=== PATIENT | female | born 1935 | race Asian ===

== ENCOUNTER 2021-04-25 16:55 | Emergency (ER) | payer SELFPAY ==
[~2021-04-25] VITALS: Ht 154.9 cm; Wt 110.0 kg
[2021-04-25 19:30] LABS: BASOPHILS % (AUTO) 0.3 % (0.0-2.0); EOSINOPHILS % (AUTO) 0.3 % (1.0-6.0); HEMOGLOBIN 12.8 g/dL (12.0-16.0); LYMPHOCYTES # (AUTO) 0.8 K/uL (1.0-4.8); LYMPHOCYTES % (AUTO) 11.7 % (22.0-44.0); MEAN CORPUSCULAR HEMOGLOBIN 28.9 pg (26.0-34.0); MEAN CORPUSCULAR HGB CONC 32.8 G/dL (31.0-37.0); MEAN CORPUSCULAR VOLUME 88 fL (80-100); MONOCYTES # (AUTO) 0.5 K/uL (0.1-1.0); MONOCYTES % (AUTO) 7.2 % (2.0-9.0); NEUTROPHILS # (AUTO) 5.7 K/uL (1.8-7.7); NEUTROPHILS % (AUTO) 80.5 % (40.0-70.0); PLATELET COUNT (AUTO) 233 K/uL (150-450); RED BLOOD CELL COUNT(AUTO) 4.43 MIL/uL (4.00-5.20)
[2021-04-25 19:48] LABS: ANION GAP 10 mmol/L (8-16); CALCIUM, TOTAL 8.2 mg/dL (8.8-10.5); CARBON DIOXIDE 27 mmol/L (22-29); CHLORIDE 108 mmol/L (98-107); CREATININE 0.73 mg/dL (0.60-1.30); GLUCOSE,RANDOM 128 mg/dL (70-110); POTASSIUM 3.3 mmol/L (3.5-5.1); SODIUM SERUM 145 mmol/L (136-145); UREA NITROGEN, BLOOD 25 mg/dL (7-18)
[2021-04-25 19:50] LABS: GLOMERULAR FILTR. RATE CALC > 60 mL/min (>60)
[2021-04-25 19:54] LABS: ALANINE AMINOTRANSFERASE 13 U/L (12-78); ALBUMIN 3.1 g/dL (3.4-5.0); ALKALINE PHOSPHATASE 86 U/L (46-116); ASPARTATE AMINOTRANSFERASE 17 U/L (15-37); BILIRUBIN,TOTAL 0.5 mg/dL (0.1-1.0)
[2021-04-25 20:06] LABS: TOTAL PROTEIN, SERUM 7.3 g/dL (6.4-8.2)
[2021-04-25 21:00] VITALS: BP 142/69
== END 2021-04-25 22:30 | disposition home or self-care (01) ==
LOC: EMS 17:00
DX: Z04.3 Encounter for examination and observation following other accident (principal); F03.90 Unspecified dementia, unspecified severity, without behavioral disturbance, psychotic disturbance, mood disturbance, and anxiety; W18.39XA Other fall on same level, initial encounter; Y93.89 Activity, other specified; Y92.89 Other specified places as the place of occurrence of the external cause; Y99.8 Other external cause status
CPT/HCPCS: 70450; 80053; 81002; 85025; 99284

== ENCOUNTER 2021-05-25 11:46 | Inpatient (IN) | payer MEDICARE ==
[~2021-05-25] VITALS: Ht 160 cm; Wt 43.2 kg
[2021-05-25 12:50] LABS: BASOPHILS % (AUTO) 0.3 % (0.0-2.0); EOSINOPHILS % (AUTO) 0 % (1.0-6.0); HEMATOCRIT 47.7 % (36-46); HEMOGLOBIN 15.5 g/dL (12.0-16.0); LYMPHOCYTES # (AUTO) 0.5 K/uL (1.0-4.8); LYMPHOCYTES % (AUTO) 4.6 % (22.0-44.0); MEAN CORPUSCULAR HEMOGLOBIN 28.8 pg (26.0-34.0); MEAN CORPUSCULAR HGB CONC 32.5 G/dL (31.0-37.0); MEAN CORPUSCULAR VOLUME 88 fL (80-100); MONOCYTES # (AUTO) 0.5 K/uL (0.1-1.0); MONOCYTES % (AUTO) 4.9 % (2.0-9.0); NEUTROPHILS # (AUTO) 9.1 K/uL (1.8-7.7); RED CELL DISTRIBUTION WIDTH 15.7 % (11.5-14.5)
[2021-05-25 12:57] LABS: NEUTROPHILS % (AUTO) 90.2 % (40.0-70.0)
[2021-05-25] MEDS: CefTRIAXone 1 GM/DEXTROSE 50 ML IV SCH (13:00)
[2021-05-25 13:01] LABS: ANION GAP 18 mmol/L (8-16); CALCIUM, TOTAL 9.3 mg/dL (8.8-10.5); CARBON DIOXIDE 25 mmol/L (22-29); CHLORIDE 112 mmol/L (98-107); CREATININE 1.44 mg/dL (0.60-1.30); GLOMERULAR FILTR. RATE CALC 34 mL/min (>60); GLUCOSE,RANDOM 169 mg/dL (70-110); POTASSIUM 3.6 mmol/L (3.5-5.1); SODIUM SERUM 155 mmol/L (136-145); UREA NITROGEN, BLOOD 99 mg/dL (7-18)
[2021-05-25 13:05] LABS: INR 1.1 (0.9-1.1); PROTHROMBIN TIME 11.5 SEC (9.4-11.6)
[2021-05-25 13:06] LABS: COVID AG,FIA SOURCE NASOPHARYNGEAL
[2021-05-25 13:07] LABS: ALANINE AMINOTRANSFERASE 15 U/L (12-78); ALBUMIN 3.5 g/dL (3.4-5.0); ALKALINE PHOSPHATASE 74 U/L (46-116); ASPARTATE AMINOTRANSFERASE 16 U/L (15-37); BILIRUBIN,TOTAL 0.6 mg/dL (0.1-1.0); CREATINE KINASE, TOTAL ONLY 44 U/L (26-192); PHOSPHORUS 5.1 mg/dL (2.5-4.9); TOTAL PROTEIN, SERUM 7.7 g/dL (6.4-8.2)
[2021-05-25 13:08] LABS: APPEARANCE,URINE CLOUDY (CLEAR); GLUCOSE, URINE (UA) NEGATIVE (NEGATIVE); KETONES,URINE 15 mg/dL (NEGATIVE); LEUKOCYTE ESTERASE ,URINE SMALL (NEGATIVE); NITRATE,URINE NEGATIVE (NEGATIVE); OCCULT BLOOD,URINE NEGATIVE (NEGATIVE); PROTEIN,URINE POS 1+ (NEGATIVE)
[2021-05-25 13:10] LABS: TROPONIN I < 0.02 ng/mL (0.00-0.05)
[2021-05-25 13:11] LABS: BILIRUBIN,URINE PRELIM. POSITIVE (NEGATIVE)
[2021-05-25 13:12] LABS: BACTERIA,URINE Many /HPF (None Seen); FINE GRANULAR CASTS,URINE 0-2 /LPF (None Seen); HYALINE CASTS, URINE 0-2 /LPF (None Seen); RBC,URINE None Seen /HPF (0-2); SQUAMOUS EPITHELIAL CELL,UR Moderate /LPF (None Seen)
[2021-05-25] MEDS ORDERED: CefTRIAXone 1 GM/DEXTROSE 50 ML IV ONE (13:15)
[2021-05-25 13:18] LABS: AMMONIA < 10 umol/L (11-32)
[2021-05-25 13:24] LABS: B-TYPE NATRIURETIC PEPTIDE 45 pg/mL (0-100)
[2021-05-25 13:32] LABS: PLATELET COUNT (AUTO) 143 K/uL (150-450)
[2021-05-25 13:38] LABS: LACTIC ACID 2.3 mmol/L (0.4-2.0)
[2021-05-25] MEDS ORDERED: 0.9% SODIUM CHLORIDE 10 ML SYRINGE IVP PRN (13:45)
[2021-05-25] MEDS ORDERED: ONDANSETRON HCL 4 MG/2 ML VIAL IVP PRN ×2 (13:45→14:30)
[2021-05-25] MEDS ORDERED: SODIUM CHLORIDE 0.9% 1,350 ML IV ONE (13:45)
[2021-05-25] MEDS ORDERED: ACETAMINOPHEN 325 MG TABLET PO PRN ×2 (13:45→14:30)
[2021-05-25] MEDS ORDERED: BISACODYL 10 MG RECTAL RECTAL SUPPOSITORY PR PRN (14:30)
[2021-05-25] MEDS ORDERED: DEXTROSE 5%-WATER 500 ML IV ONE (14:30)
[2021-05-25] MEDS ORDERED: ZOLPIDEM TARTRATE 5 MG TABLET PO PRN (14:30)
[2021-05-25] MEDS ORDERED: HYDROCODONE/ACETAMINOPHEN 5-325 MG TABLET PO PRN (14:30)
[2021-05-25] MEDS ORDERED: MORPHINE SULFATE 2 MG/ML SYRINGE IVP PRN (14:30)
[2021-05-25] MEDS ORDERED: MAGNESIUM HYDROXIDE SUSPENSION 30 ML UDCUP PO PRN (14:30)
[2021-05-25] MEDS: HEPARIN SODIUM,PORCINE 5,000 UNITS/ML VIAL SQ SCH ×2 (16:10→23:57)
[2021-05-25 18:37] VITALS: BP 150/66
[2021-05-25 20:10] VITALS: BP 117/80
[2021-05-25] MEDS: DOCUSATE SODIUM 100 MG CAPSULE PO SCH (21:00)
[2021-05-25 23:51] VITALS: BP 125/78
[2021-05-26 05:08] VITALS: BP 134/62
[2021-05-26 06:52] LABS: BASOPHILS % (AUTO) 0.1 % (0.0-2.0); EOSINOPHILS % (AUTO) 0 % (1.0-6.0); HEMATOCRIT 43.8 % (36-46); LYMPHOCYTES # (AUTO) 0.5 K/uL (1.0-4.8); LYMPHOCYTES % (AUTO) 6.7 % (22.0-44.0); MEAN CORPUSCULAR HEMOGLOBIN 28.9 pg (26.0-34.0); MEAN CORPUSCULAR HGB CONC 31.9 G/dL (31.0-37.0); MEAN CORPUSCULAR VOLUME 91 fL (80-100); MONOCYTES # (AUTO) 0.5 K/uL (0.1-1.0); MONOCYTES % (AUTO) 6.7 % (2.0-9.0); NEUTROPHILS # (AUTO) 6.4 K/uL (1.8-7.7); PLATELET COUNT (AUTO) 118 K/uL (150-450); RED BLOOD CELL COUNT(AUTO) 4.84 MIL/uL (4.00-5.20)
[2021-05-26 06:58] LABS: NEUTROPHILS % (AUTO) 86.5 % (40.0-70.0)
[2021-05-26 07:10] LABS: ALBUMIN 2.9 g/dL (3.4-5.0); BILIRUBIN,TOTAL 0.5 mg/dL (0.1-1.0); CALCIUM, TOTAL 8.6 mg/dL (8.8-10.5); POTASSIUM 3.6 mmol/L (3.5-5.1); TOTAL PROTEIN, SERUM 6.3 g/dL (6.4-8.2)
[2021-05-26 07:22] VITALS: BP 119/73
[2021-05-26] MEDS: HEPARIN SODIUM,PORCINE 5,000 UNITS/ML VIAL SQ SCH ×3 (08:20→23:41)
[2021-05-26] MEDS: DOCUSATE SODIUM 100 MG CAPSULE PO SCH ×2 (09:00→20:36)
[2021-05-26] MEDS: PANTOPRAZOLE SODIUM 40 MG DR TABLET PO SCH (09:00)
[2021-05-26 11:00] VITALS: BP 102/54
[2021-05-26] MEDS: CefTRIAXone 1 GM/DEXTROSE 50 ML IV SCH (13:29)
[2021-05-26] MEDS: DEXTROSE 5%-WATER 1,000 ML IV ONE ×2 (14:03→23:40)
[2021-05-26 15:09] VITALS: BP 130/61
[2021-05-26 19:44] VITALS: BP 104/52
[2021-05-26 23:53] VITALS: BP 99/65
[2021-05-27 05:03] VITALS: BP 101/58
[2021-05-27 07:10] LABS: CALCIUM, TOTAL 8.5 mg/dL (8.8-10.5); CREATININE 0.9 mg/dL (0.60-1.30); POTASSIUM 3.5 mmol/L (3.5-5.1)
[2021-05-27 07:30] VITALS: BP 111/51
[2021-05-27] MEDS: DOCUSATE SODIUM 100 MG CAPSULE PO SCH ×2 (08:51→20:08)
[2021-05-27] MEDS: HEPARIN SODIUM,PORCINE 5,000 UNITS/ML VIAL SQ SCH ×3 (08:52→23:38)
[2021-05-27] MEDS: PANTOPRAZOLE SODIUM 40 MG DR TABLET PO SCH (08:52)
[2021-05-27 11:30] VITALS: BP 94/56
[2021-05-27] MEDS: CefTRIAXone 1 GM/DEXTROSE 50 ML IV SCH (13:11)
[2021-05-27 16:13] VITALS: BP 109/56
[2021-05-27] MEDS: DEXTROSE 5%-WATER 1,000 ML IV SCH (18:52)
[2021-05-27 19:57] VITALS: BP 113/75
[2021-05-27 23:50] VITALS: BP 101/66
[2021-05-28 03:57] VITALS: BP 106/55
[2021-05-28 06:11] LABS: ANION GAP 6 mmol/L (8-16); CALCIUM, TOTAL 7.9 mg/dL (8.8-10.5); CARBON DIOXIDE 29 mmol/L (22-29); CHLORIDE 107 mmol/L (98-107); CREATININE 0.78 mg/dL (0.60-1.30); GLUCOSE,RANDOM 136 mg/dL (70-110); PHOSPHORUS 1.9 mg/dL (2.5-4.9); SODIUM SERUM 142 mmol/L (136-145); UREA NITROGEN, BLOOD 31 mg/dL (7-18)
[2021-05-28 06:12] LABS: GLOMERULAR FILTR. RATE CALC > 60 mL/min (>60)
[2021-05-28 07:06] VITALS: BP 107/58
[2021-05-28] MEDS: DOCUSATE SODIUM 100 MG CAPSULE PO SCH ×2 (08:16→19:50)
[2021-05-28] MEDS: HEPARIN SODIUM,PORCINE 5,000 UNITS/ML VIAL SQ SCH ×3 (08:16→23:52)
[2021-05-28 12:00] VITALS: BP 103/66
[2021-05-28] MEDS ORDERED: SODIUM,POTASSIUM PHOSPHATES POWDER PACKET PO ONE (13:30)
[2021-05-28] MEDS ORDERED: MAGNESIUM SULFATE 4 GM/WATER 100 ML IV PRN (13:30)
[2021-05-28] MEDS ORDERED: MAGNESIUM SULFATE 2 GM/WATER 50 ML IV PRN (13:30)
[2021-05-28 13:56] LABS: ALBUMIN 2.2 g/dL (3.4-5.0)
[2021-05-28] MEDS: CefTRIAXone 1 GM/DEXTROSE 50 ML IV SCH (14:00)
[2021-05-28] MEDS: DEXTROSE 5%-WATER 1,000 ML IV SCH (15:26)
[2021-05-28 15:55] VITALS: BP 110/61
[2021-05-28] MEDS: MAGNESIUM OXIDE 400 MG TABLET PO PRN ×2 (16:07→23:52)
[2021-05-28 19:36] VITALS: BP 131/51
[2021-05-29 00:03] VITALS: BP 133/67
[2021-05-29 04:25] VITALS: BP 135/72
[2021-05-29 07:30] LABS: BASOPHILS % (AUTO) 0.3 % (0.0-2.0); EOSINOPHILS % (AUTO) 2.4 % (1.0-6.0); HEMATOCRIT 39.8 % (36-46); HEMOGLOBIN 12.9 g/dL (12.0-16.0); LYMPHOCYTES # (AUTO) 1.3 K/uL (1.0-4.8); MEAN CORPUSCULAR HEMOGLOBIN 28.5 pg (26.0-34.0); MEAN CORPUSCULAR HGB CONC 32.5 G/dL (31.0-37.0); MEAN CORPUSCULAR VOLUME 88 fL (80-100); MONOCYTES # (AUTO) 0.6 K/uL (0.1-1.0); MONOCYTES % (AUTO) 8.9 % (2.0-9.0); NEUTROPHILS # (AUTO) 4.3 K/uL (1.8-7.7); NEUTROPHILS % (AUTO) 68.4 % (40.0-70.0); PLATELET COUNT (AUTO) 125 K/uL (150-450); RED BLOOD CELL COUNT(AUTO) 4.55 MIL/uL (4.00-5.20); RED CELL DISTRIBUTION WIDTH 15.1 % (11.5-14.5)
[2021-05-29 07:41] LABS: ANION GAP 5 mmol/L (8-16); CALCIUM, TOTAL 8.5 mg/dL (8.8-10.5); CARBON DIOXIDE 33 mmol/L (22-29); CHLORIDE 104 mmol/L (98-107); CREATININE 0.77 mg/dL (0.60-1.30); GLUCOSE,RANDOM 121 mg/dL (70-110); POTASSIUM 3.2 mmol/L (3.5-5.1); SODIUM SERUM 142 mmol/L (136-145); UREA NITROGEN, BLOOD 14 mg/dL (7-18)
[2021-05-29 07:42] LABS: GLOMERULAR FILTR. RATE CALC > 60 mL/min (>60)
[2021-05-29 08:17] VITALS: BP 107/68
[2021-05-29] MEDS: DOCUSATE SODIUM 100 MG CAPSULE PO SCH (08:48)
[2021-05-29] MEDS: HEPARIN SODIUM,PORCINE 5,000 UNITS/ML VIAL SQ SCH ×2 (08:49→16:00)
[2021-05-29] MEDS ORDERED: POTASSIUM CHLORIDE 20 MEQ ER TABLET PO PRN (10:00)
[2021-05-29] MEDS ORDERED: POTASSIUM CHL 10 MEQ/WATER 50 ML IV PRN (10:00)
[2021-05-29] MEDS: DEXTROSE 5%-WATER 1,000 ML IV SCH (10:43)
[2021-05-29] MEDS: CefTRIAXone 1 GM/DEXTROSE 50 ML IV SCH (12:04)
[2021-05-29] MEDS ORDERED: CEPH500C3 PO (15:31)
== END 2021-05-29 18:00 | DRG 682 ==
LOC: EMS 11:46 → 5S 17:50
PROVIDERS: ADMIT Internal Medicine; ATTEND Internal Medicine
DX: N17.9 Acute kidney failure, unspecified (principal); G93.41 Metabolic encephalopathy; E43 Unspecified severe protein-calorie malnutrition; N39.0 Urinary tract infection, site not specified; E87.0 Hyperosmolality and hypernatremia; Z68.1 Body mass index [BMI] 19.9 or less, adult; N17.8 Other acute kidney failure; E86.1 Hypovolemia; F03.90 Unspecified dementia, unspecified severity, without behavioral disturbance, psychotic disturbance, mood disturbance, and anxiety; Z20.822 Contact with and (suspected) exposure to COVID-19
CPT/HCPCS: 70450; 71045; 72125; 80048; 80053; 81001; 82040; 82140; 82550; 83605; 83735; 83880; 84100; 84132; 84484; 85025; 85610; 85730; 87040; 87086; 92526; 93005; 97161; 99285; J0696; J1644; J7030; J7060; 36415-L1; 36415-TC

== ENCOUNTER 2021-06-25 09:50 | Emergency (ER) | payer MEDICARE ==
[~2021-06-25] VITALS: Ht 149.9 cm; Wt 45.0 kg
[~2021-06-25 09:50] MED LIST: CEPH500C3 PO
[2021-06-25 11:17] LABS: BASOPHILS % (AUTO) 0.5 % (0.0-2.0); EOSINOPHILS % (AUTO) 1.5 % (1.0-6.0); HEMATOCRIT 33.8 % (36-46); HEMOGLOBIN 11.2 g/dL (12.0-16.0); LYMPHOCYTES # (AUTO) 1.2 K/uL (1.0-4.8); LYMPHOCYTES % (AUTO) 18.5 % (22.0-44.0); MEAN CORPUSCULAR HEMOGLOBIN 29.1 pg (26.0-34.0); MEAN CORPUSCULAR VOLUME 88 fL (80-100); MONOCYTES # (AUTO) 0.8 K/uL (0.1-1.0); MONOCYTES % (AUTO) 11.6 % (2.0-9.0); NEUTROPHILS # (AUTO) 4.5 K/uL (1.8-7.7); NEUTROPHILS % (AUTO) 67.9 % (40.0-70.0); PLATELET COUNT (AUTO) 411 K/uL (150-450); RED BLOOD CELL COUNT(AUTO) 3.83 MIL/uL (4.00-5.20); RED CELL DISTRIBUTION WIDTH 17.2 % (11.5-14.5)
[2021-06-25 11:27] LABS: ANION GAP 2 mmol/L (8-16); CALCIUM, TOTAL 8.7 mg/dL (8.8-10.5); CARBON DIOXIDE 31 mmol/L (22-29); CHLORIDE 110 mmol/L (98-107); CREATININE 0.73 mg/dL (0.60-1.30); GLOMERULAR FILTR. RATE CALC > 60 mL/min (>60); GLUCOSE,RANDOM 98 mg/dL (70-110); POTASSIUM 3.9 mmol/L (3.5-5.1); SODIUM SERUM 143 mmol/L (136-145); UREA NITROGEN, BLOOD 44 mg/dL (7-18)
[2021-06-25 11:31] LABS: ALANINE AMINOTRANSFERASE 23 U/L (12-78); ALBUMIN 2.9 g/dL (3.4-5.0); ALKALINE PHOSPHATASE 102 U/L (46-116); ASPARTATE AMINOTRANSFERASE 17 U/L (15-37); BILIRUBIN,TOTAL 0.2 mg/dL (0.1-1.0); TOTAL PROTEIN, SERUM 7.1 g/dL (6.4-8.2)
[2021-06-25 15:00] VITALS: BP 120/84
== END 2021-06-25 13:19 | disposition home or self-care (01) ==
LOC: EMS 09:50
DX: S09.90XA Unspecified injury of head, initial encounter (principal); M47.022 Vertebral artery compression syndromes, cervical region; F03.90 Unspecified dementia, unspecified severity, without behavioral disturbance, psychotic disturbance, mood disturbance, and anxiety; D32.9 Benign neoplasm of meninges, unspecified; W19.XXXA Unspecified fall, initial encounter; Y93.89 Activity, other specified; Y92.89 Other specified places as the place of occurrence of the external cause; Y99.8 Other external cause status
CPT/HCPCS: 51701; 70450; 72125; 80053; 81002; 85025; 99284

== ENCOUNTER 2022-08-14 17:32 | Inpatient (IN) | payer MEDICARE, OTHER ==
[~2022-08-14] VITALS: Ht 129.5 cm; Wt 45.1 kg
[~2022-08-14 17:32] MED LIST changes: +CEPH-558 PO; -CEPH500C3 PO
[2022-08-14] MEDS ORDERED: FUROSEMIDE 20 MG/2 ML VIAL IVP ONE (18:00)
[2022-08-14 18:34] LABS: BASOPHILS % (AUTO) 0.7 % (0.0-2.0); EOSINOPHILS % (AUTO) 0.9 % (1.0-6.0); HEMATOCRIT 35.6 % (36-46); HEMOGLOBIN 11.4 g/dL (12.0-16.0); LYMPHOCYTES % (AUTO) 26.7 % (22.0-44.0); MEAN CORPUSCULAR HGB CONC 31.9 G/dL (31.0-37.0); MEAN CORPUSCULAR VOLUME 85 fL (80-100); MONOCYTES # (AUTO) 0.9 K/uL (0.1-1.0); MONOCYTES % (AUTO) 7.8 % (2.0-9.0); NEUTROPHILS # (AUTO) 7.1 K/uL (1.8-7.7); NEUTROPHILS % (AUTO) 63.9 % (40.0-70.0); PLATELET COUNT (AUTO) 469 K/uL (150-450); RED BLOOD CELL COUNT(AUTO) 4.21 MIL/uL (4.00-5.20); RED CELL DISTRIBUTION WIDTH 15.9 % (11.5-14.5)
[2022-08-14 18:41] LABS: COVID AG,FIA SOURCE NASAL SWAB
[2022-08-14 18:42] LABS: ANION GAP 6 mmol/L (8-16); CALCIUM, TOTAL 9.1 mg/dL (8.8-10.5); CARBON DIOXIDE 26 mmol/L (22-29); CHLORIDE 107 mmol/L (98-107); CREATININE 0.82 mg/dL (0.60-1.30); GLUCOSE,RANDOM 135 mg/dL (70-110); POTASSIUM 3.9 mmol/L (3.5-5.1); SODIUM SERUM 139 mmol/L (136-145); UREA NITROGEN, BLOOD 22 mg/dL (7-18)
[2022-08-14 18:45] LABS: GLOMERULAR FILTR. RATE CALC > 60 mL/min (>60)
[2022-08-14 18:48] LABS: D-DIMER 1.68 mg/L FEU (0.00-0.50); INR 0.9 (0.9-1.1); PROTHROMBIN TIME 9.8 SEC (9.4-11.6)
[2022-08-14 18:50] LABS: ALANINE AMINOTRANSFERASE 20 U/L (12-78); ALBUMIN 3.1 g/dL (3.4-5.0); ALKALINE PHOSPHATASE 92 U/L (46-116); ASPARTATE AMINOTRANSFERASE 22 U/L (15-37); BILIRUBIN,TOTAL 0.2 mg/dL (0.1-1.0); CREATINE KINASE, TOTAL ONLY 27 U/L (26-192); TOTAL PROTEIN, SERUM 8.6 g/dL (6.4-8.2)
[2022-08-14 18:54] LABS: B-TYPE NATRIURETIC PEPTIDE 113 pg/mL (0-100)
[2022-08-14] MEDS ORDERED: IOHEXOL 350 MG/ML 100 ML VIAL ONE (18:54)
[2022-08-14] MEDS ORDERED: SODIUM CHLORIDE 0.9% 100 ML ONE (18:54)
[2022-08-14] MEDS ORDERED: LORazepam 2 MG/ML VIAL IVP ONE ×2 (19:00→21:15)
[2022-08-14 19:04] LABS: INFLUENZA TYPE A NEGATIVE FOR TYPE A (NEGATIVE); INFLUENZA TYPE B NEGATIVE FOR TYPE B (NEGATIVE)
[2022-08-14 21:06] LABS: APPEARANCE,URINE CLEAR (CLEAR); BILIRUBIN,URINE NEGATIVE (NEGATIVE); GLUCOSE, URINE (UA) NEGATIVE (NEGATIVE); KETONES,URINE NEGATIVE (NEGATIVE); LEUKOCYTE ESTERASE ,URINE NEGATIVE (NEGATIVE); NITRATE,URINE NEGATIVE (NEGATIVE); OCCULT BLOOD,URINE NEGATIVE (NEGATIVE); PH,URINE 5.5 (5.0-8.0); PROTEIN,URINE NEGATIVE (NEGATIVE); SPECIFIC GRAVITIY, URINE 1.019 (1.003-1.030); UROBILINOGEN,URINE <=1.0 mg/dL (<=1.0)
[2022-08-14] MEDS ORDERED: ONDANSETRON HCL 4 MG/2 ML VIAL IVP PRN (22:30)
[2022-08-14] MEDS ORDERED: ALBUTEROL SULFATE 2.5 MG/0.5 ML NEB SOLUTION NEB PRN (22:30)
[2022-08-14] MEDS ORDERED: ACETAMINOPHEN 325 MG TABLET PO PRN (22:30)
[2022-08-14] MEDS ORDERED: DEXAMETHASONE SOD PHOS 4 MG/ML 5 ML VIAL IVP ONE (22:30)
[2022-08-14] MEDS ORDERED: IPRATROPIUM BROMIDE 0.5 MG/2.5 ML NEB SOLUTION NEB PRN (22:30)
[2022-08-14 23:05] LABS: LACTATE DEHYDROGENASE 342 U/L (81-234)
[2022-08-15 00:43] VITALS: BP 120/70
[2022-08-15 04:00] VITALS: BP 93/62
[2022-08-15 06:29] LABS: BASOPHILS % (AUTO) 0.2 % (0.0-2.0); EOSINOPHILS % (AUTO) 0 % (1.0-6.0); HEMATOCRIT 31.7 % (36-46); HEMOGLOBIN 10.5 g/dL (12.0-16.0); LYMPHOCYTES # (AUTO) 0.5 K/uL (1.0-4.8); LYMPHOCYTES % (AUTO) 5.6 % (22.0-44.0); MEAN CORPUSCULAR HEMOGLOBIN 27.6 pg (26.0-34.0); MEAN CORPUSCULAR HGB CONC 33.2 G/dL (31.0-37.0); MEAN CORPUSCULAR VOLUME 83 fL (80-100); MONOCYTES # (AUTO) 0.1 K/uL (0.1-1.0); MONOCYTES % (AUTO) 0.7 % (2.0-9.0); NEUTROPHILS # (AUTO) 7.9 K/uL (1.8-7.7); PLATELET COUNT (AUTO) 420 K/uL (150-450); RED BLOOD CELL COUNT(AUTO) 3.81 MIL/uL (4.00-5.20); RED CELL DISTRIBUTION WIDTH 16.1 % (11.5-14.5)
[2022-08-15 06:31] LABS: ANION GAP 7 mmol/L (8-16); CALCIUM, TOTAL 8.7 mg/dL (8.8-10.5); CARBON DIOXIDE 25 mmol/L (22-29); CHLORIDE 107 mmol/L (98-107); CREATININE 0.78 mg/dL (0.60-1.30); GLUCOSE,RANDOM 183 mg/dL (70-110); POTASSIUM 4.5 mmol/L (3.5-5.1); SODIUM SERUM 139 mmol/L (136-145); UREA NITROGEN, BLOOD 24 mg/dL (7-18); URIC ACID 5.7 mg/dL (2.6-7.2)
[2022-08-15 06:41] LABS: GLOMERULAR FILTR. RATE CALC > 60 mL/min (>60)
[2022-08-15 07:25] LABS: NEUTROPHILS % (AUTO) 93.5 % (40.0-70.0)
[2022-08-15 08:00] VITALS: BP_SYST 120; BP_SYST 93; BP_DIAS 120; BP_DIAS 84
[2022-08-15] MEDS: HEPARIN SODIUM,PORCINE 5,000 UNITS/ML VIAL SQ SCH ×3 (08:17→17:47)
[2022-08-15] MEDS: ETHYL ALCOHOL 62% ANTISEPTIC NASAL SANITIZER 0.6 ML AMPUL NASAL SCH ×2 (08:17→20:14)
[2022-08-15 12:00] VITALS: BP 109/62
[2022-08-15 16:00] VITALS: BP 103/52
[2022-08-15] MEDS: DEXAMETHASONE SOD PHOS 4 MG/ML VIAL IVP SCH (18:55)
[2022-08-15 19:55] VITALS: BP 114/64
[2022-08-16] MEDS: HEPARIN SODIUM,PORCINE 5,000 UNITS/ML VIAL SQ SCH ×4 (00:11→23:27)
[2022-08-16 04:00] VITALS: BP 116/68
[2022-08-16 08:02] VITALS: BP 104/79
[2022-08-16] MEDS: DEXAMETHASONE SOD PHOS 4 MG/ML VIAL IVP SCH (08:33)
[2022-08-16] MEDS: ETHYL ALCOHOL 62% ANTISEPTIC NASAL SANITIZER 0.6 ML AMPUL NASAL SCH ×2 (08:33→20:36)
[2022-08-16 11:52] VITALS: BP 104/76
[2022-08-16 14:34] VITALS: BP 115/63
[2022-08-16 18:47] VITALS: BP 130/56
[2022-08-16 20:25] VITALS: BP 118/67
[2022-08-17 05:07] VITALS: BP 114/52
[2022-08-17 08:24] VITALS: BP 105/61
[2022-08-17] MEDS: HEPARIN SODIUM,PORCINE 5,000 UNITS/ML VIAL SQ SCH (08:31)
[2022-08-17] MEDS: DEXAMETHASONE SOD PHOS 4 MG/ML VIAL IVP SCH (08:31)
[2022-08-17] MEDS: ETHYL ALCOHOL 62% ANTISEPTIC NASAL SANITIZER 0.6 ML AMPUL NASAL SCH (08:31)
[2022-08-17 11:27] VITALS: BP 120/64
== END 2022-08-17 13:40 | disposition hospice, inpatient (51) | DRG 189 ==
LOC: EMS 17:37 → ICU 22:30 → 5S 08-15 17:15 → 6S 08-16 18:48
PROVIDERS: ADMIT Internal Medicine; ATTEND Internal Medicine
DX: J96.01 Acute respiratory failure with hypoxia (principal); E43 Unspecified severe protein-calorie malnutrition; R65.11 Systemic inflammatory response syndrome (SIRS) of non-infectious origin with acute organ dysfunction; F03.90 Unspecified dementia, unspecified severity, without behavioral disturbance, psychotic disturbance, mood disturbance, and anxiety; Z66 Do not resuscitate; J43.9 Emphysema, unspecified; R79.1 Abnormal coagulation profile; Z79.899 Other long term (current) drug therapy; Z51.5 Encounter for palliative care; Z68.26 Body mass index [BMI] 26.0-26.9, adult; D49.89 Neoplasm of unspecified behavior of other specified sites
CPT/HCPCS: 71045; 71275; 80048; 80053; 81003; 82550; 83615; 83735; 83880; 84484; 84550; 85025; 85379; 85610; 85730; 87081; 87804; 93005; 94640; 99285; G0378; J1100; J1644; J1940; J2060; J7050; Q9967; 36415-L1; 36415-TC; J7613